=== PATIENT | male | born 1980 | race Two or more races ===

== ENCOUNTER 2021-09-20 | Emergency (ER) | payer MEDICAID ==
[2021-09-20] MEDS ORDERED: diphenhydrAMINE 50 MG/ML SDV IVPUSH ONE (01:59)
[2021-09-20] MEDS ORDERED: Lactated Ringers 1,000 ML IV ONE (01:59)
[2021-09-20] MEDS ORDERED: Prochlorperazine 10 MG/2 ML SDV IVPUSH ONE (01:59)
== END 2021-09-20 04:10 | disposition home or self-care (01) ==
LOC: JD.ED
DX: G43.909 Migraine, unspecified, not intractable, without status migrainosus (principal); T14.90XA Injury, unspecified, initial encounter; I25.2 Old myocardial infarction; Z72.0 Tobacco use; Z88.1 Allergy status to other antibiotic agents; Z88.8 Allergy status to other drugs, medicaments and biological substances; Y04.0XXA Assault by unarmed brawl or fight, initial encounter
CPT/HCPCS: 70450; 71046; 72125; 96374; 96375; 99284; J0780; J1200; J7120

== ENCOUNTER 2021-10-03 19:09 | Emergency (ER) | payer MEDICAID ==
[2021-10-03] MEDS ORDERED: Metoclopramide 10 MG/2 ML SDV IVPUSH ONE (21:07)
[2021-10-03] MEDS ORDERED: Ketorolac 15 MG/ML SDV IVPUSH ONE (21:07)
[2021-10-03] MEDS ORDERED: Sodium Chloride 0.9% 1,000 ML IV ONE (21:07)
== END 2021-10-03 23:03 | disposition home or self-care (01) ==
LOC: JD.ED 19:09
DX: G43.909 Migraine, unspecified, not intractable, without status migrainosus (principal); R20.2 Paresthesia of skin; I10 Essential (primary) hypertension; I25.2 Old myocardial infarction; Z88.1 Allergy status to other antibiotic agents; Z88.8 Allergy status to other drugs, medicaments and biological substances; Z72.0 Tobacco use
CPT/HCPCS: 36415; 80053; 83735; 84484; 85025; 85610; 93005; 96374; 96375; 99284; J1885; J2765; J7030; 93010; 99285